=== PATIENT | female | born 1960 | race Caucasian/White ===

== ENCOUNTER 2023-12-05 06:55 | Outpatient (CLI) | payer BC, SELFPAY ==
[2023-12-05 18:49] LABS: Alanine Aminotransferase 29 U/L (6-35); Albumin Level 4.4 g/dL (3.5-5.1); Alkaline Phosphatase 81 U/L (38-126); Anion Gap 10 mmol/L (4-12); Aspartate Amino Transferase 79 U/L (14-36); Bilirubin,Total 0.4 mg/dL (0.2-1.3); Blood Urea Nitrogen 19 mg/dL (7-17); Calcium 9.5 mg/dL (8.4-10.2); Carbon Dioxide 25 mmol/L (22-30); Chloride 104 mmol/L (98-107); Cholesterol 206 mg/dL (0-200); Estimated Glomerular Filt Rate > 60; Glucose 95 mg/dL (65-110); HDL Direct 43 mg/dL; Potassium 4.5 mmol/L (3.4-5.0); Sodium 139 mmol/L (137-145); Triglycerides 363 mg/dL (<150)
[2023-12-05 19:00] LABS: LDL Cholesterol Direct 94 mg/dL
[2023-12-05 19:08] LABS: Hematocrit 45.4 % (37.0-47.0); Hemoglobin 14.5 g/dL (12.0-15.0); Mean Corpuscular HGB Conc 31.9 g/dl (32-36); Mean Corpuscular Hemoglobin 32.7 pg (26-34); Mean Corpuscular Volume 102.3 fl (80-100); Mean Platelet Volume 9.1 fl (7.4-10.4); Platelet Count Result 345 k/mm3 (150-375); Red Blood Count 4.44 M/mm3 (4.2-5.4); Red Cell Distribution Width 12.3 % (11.5-14.5); White Blood Count 9.2 K/mm3 (4.5-10.0)
[2023-12-05 19:43] LABS: Creatinine Urine 104.9 mg/dL
[2023-12-05 19:47] LABS: MALB Creatinine Ratio 10.7 mg/g (0-30); Microalbumin Urine Random 11.2 mg/L (0-16.7)
[2023-12-05 23:46] LABS: Hemoglobin A1C 5.5 % (<5.7)
== END 2023-12-05 06:56 | disposition home or self-care (01) ==
PROVIDERS: PCP Nurse Practitioner Adult Health; Visit Provider Nurse Practitioner Adult Health
DX: E11.9 Type 2 diabetes mellitus without complications (principal); Z13.9 Encounter for screening, unspecified
CPT/HCPCS: 36415; 80053; 80061; 82043; 83036; 85027

== ENCOUNTER 2023-12-16 14:46 | Outpatient (CLI) | payer BC, SELFPAY ==
--- NOTE | ~2023-12-16 | CT_ITS ---
EXAMINATION: CT sinus wo con DATE: 12/16/2023 15:02 INDICATION: Chronic sinusitis, recurrent sinusitis TECHNIQUE: Computed tomography (CT) of the paranasal sinuses was performed without contrast. Iterativ e reconstruction technique was employed. Exam dose: 387.90 mGy-cm total exam DLP. COMPARISON: None FINDINGS: There is leftward deviation of the nasal septum. Prominent soft tissue swelling of the nasa l turbinates. The ostiomeatal units are patent bilaterally. The paranasal sinuses are normally developed and aerated. The mastoid air cells are normally developed and aerated. Middle and inner ear apparatus are unremark able. IMPRESSION: Leftward deviation nasal septum Symmetric soft tissue swelling of the nasal turbinates Patent ostiomeatal units, paranasal sinuses and mastoid air cells Reviewed, dictated and finalized at [facility]. Reviewed, dictated and finalized at [facility].
== END 2023-12-16 14:47 ==
LOC: GOSHIMG 14:47
PROVIDERS: PCP Nurse Practitioner Adult Health; Visit Provider Otolaryngology
DX: J32.8 Other chronic sinusitis (principal); J34.2 Deviated nasal septum
CPT/HCPCS: 70486

== ENCOUNTER 2023-12-28 06:59 | Outpatient (CLI) | payer BC, SELFPAY ==
[2023-12-28 19:45] LABS: Iron 124 ug/dL (37-170)
[2023-12-28 19:50] LABS: Alanine Aminotransferase 24 U/L (6-35); Albumin Level 4.2 g/dL (3.5-5.1); Alkaline Phosphatase 74 U/L (38-126); Aspartate Amino Transferase 71 U/L (14-36); Bilirubin,Total 0.4 mg/dL (0.2-1.3); Cholesterol 153 mg/dL (0-200); HDL Direct 48 mg/dL; Triglycerides 300 mg/dL (<150)
[2023-12-28 19:55] LABS: Percent Iron Saturation 57 % (20-50)
[2023-12-28 19:56] LABS: Transferrin 178 mg/dL (206-381)
[2023-12-28 20:02] LABS: LDL Cholesterol Direct 58 mg/dL
[2023-12-28 20:19] LABS: Vitamin D 25 Hydroxy 30.6 ng/mL
[2023-12-28 20:58] LABS: Folic Acid > 20.0 ng/mL (2.76->20); Vitamin B12 > 1000.0 pg/mL (239-931)
== END 2023-12-28 07:00 | disposition home or self-care (01) ==
LOC: ANHBWCLAB 07:00
PROVIDERS: PCP Nurse Practitioner Adult Health; Visit Provider Nurse Practitioner Adult Health
DX: E78.5 Hyperlipidemia, unspecified (principal); R53.83 Other fatigue; Z83.49 Family history of other endocrine, nutritional and metabolic diseases
CPT/HCPCS: 36415; 80061; 80076; 82306; 82607; 82728; 82746; 83540; 83550; 84466

== ENCOUNTER 2024-02-14 14:13 | Outpatient (CLI) | payer BC, SELFPAY ==
[2024-02-14 14:32] LABS: Basophils Absolute Auto 0.1 K/mm3 (0.0-0.1); Basophils Percent Auto 0.6 % (0.2-1.2); Eosinophils Absolute Auto 0.2 K/mm3 (0-0.3); Eosinophils Percent Auto 2.1 % (0-4.4); Hemoglobin 14.6 g/dL (12.0-15.0); Immature Granulocyte Absolute 0.03 K/mm3 (0.00-0.031); Immature Granulocyte Percent A 0.3 % (0-0.5); Lymphocytes Absolute Auto 2.48 K/mm3 (0.9-3.2); Lymphocytes Percent Auto 25.7 % (18.3-44.2); Mean Corpuscular HGB Conc 33.2 g/dl (32-36); Mean Corpuscular Hemoglobin 32.4 pg (26-34); Mean Corpuscular Volume 97.6 fl (80-100); Mean Platelet Volume 8.5 fl (7.4-10.4); Monocytes Absolute Auto 0.7 K/mm3 (0.1-0.6); Monocytes Percent Auto 7.3 % (2.6-8.5); Neutrophils Absolute Auto 6.2 K/mm3 (1.3-6.7); Platelet Count Result 316 k/mm3 (150-375); Red Blood Count 4.51 M/mm3 (4.2-5.4); Red Cell Distribution Width 11.9 % (11.5-14.5); White Blood Count 9.6 K/mm3 (4.5-10.0)
[2024-02-14 16:32] LABS: Alanine Aminotransferase 34 U/L (6-35); Albumin Level 4.4 g/dL (3.5-5.1); Alkaline Phosphatase 79 U/L (38-126); Anion Gap 6 mmol/L (4-12); Aspartate Amino Transferase 26 U/L (14-36); Bilirubin,Total 0.2 mg/dL (0.2-1.3); Blood Urea Nitrogen 23 mg/dL (7-17); Calcium 9.7 mg/dL (8.4-10.2); Carbon Dioxide 31 mmol/L (22-30); Chloride 103 mmol/L (98-107); Estimated Glomerular Filt Rate > 60; Glucose 106 mg/dL (65-110); Potassium 4.2 mmol/L (3.4-5.0); Sodium 140 mmol/L (137-145)
[2024-02-14 17:24] LABS: Iron 102 ug/dL (37-170)
[2024-02-14 17:34] LABS: Percent Iron Saturation 45 % (20-50)
== END 2024-02-14 14:14 | disposition home or self-care (01) ==
LOC: ANHLAB 14:15
PROVIDERS: PCP Nurse Practitioner Adult Health; Visit Provider Internal Medicine Hematology & Oncology
DX: E83.19 Other disorders of iron metabolism (principal)
CPT/HCPCS: 36415; 80053; 81256; 82728; 83540; 83550; 85025